=== PATIENT | female | born 1975 | race Caucasian/White ===

== ENCOUNTER 2019-10-19 11:03 | Emergency (ER) | payer OTHER, SELFPAY ==
--- NOTE | ~2019-10-19 | XR_ITS ---
EXAMINATION: XR foot LT min 3V EXAM DATE: 10/19/2019 11:34 INDICATION: Initial encounter following injury, with pain of the left foot. Injury 2 weeks ago. TECHNIQUE: Left foot dorsoplantar, lateral and oblique projections obtained and reviewed. There is n o prior study for comparison. FINDINGS: Left metatarsal bones unremarkable. Small posterior calcaneal spur. No periosteal reacti on to suggest subacute fracture. There are no acute fractures or dislocations identified. There i s no subcutaneous gas. The soft tissue is unremarkable. There are no radiopaque foreign bodies. IMPRESSION: No acute osseous findings. Reviewed, dictated and finalized at location B. IMPRESSION: No acute osseous findings.
[2019-10-19 11:16] VITALS: BP 140/94; PULSE 102; RESP 20; TEMP 36.9; O2SAT 99
--- NOTE | 2019-10-19 11:26 | ED.LOWEXIN ---
HPI - Extremity Injury (Lower) General Chief Complaint: Extremity Injury, Lower Stated Complaint: left foot injury Time Seen by Provider: 10/19/19 11:20 Source: patient Mode of arrival: ambulatory Limitations: no limitations History of Present Illness HPI Narrative: Dana Smith is a 44 yo female with a PMH of HTN, arthritis, who comes to express care with a wound that is 2 weeks old. She kicked firewood with a pair flip-flops on and sustained an injury to the dorsum of her forefoot at the base of toes 3 and 4 that has been swollen and painful, it has gotten more indurated with time. Related Data Home Medications Medication Instructions Recorded Confirmed amlodipine 5 mg DAILY 04/16/19 10/19/19 lisinopril 40 mg DAILY 04/16/19 10/19/19 meloxicam 15 mg DAILY 10/19/19 10/19/19 Allergies Allergy/AdvReac Type Severity Reaction Status Date / Time tramadol Allergy Unknown HIVES Unverified 10/19/19 11:10 Chocolate Allergy Mild Unknown Uncoded 10/19/19 11:10 Dust Allergy Mild Unknown Uncoded 10/19/19 11:10 Review of Systems Review of Systems: Narrative: CONSTITUTIONAL: Denies fever, chills, sweats. EYES: Denies visual changes, redness, discharge. ENT: Denies rhinorrhea, congestion, sore throat, otalgia. CARDIOVASCULAR: Denies chest pain, palpitations, edema. RESPIRATORY: Denies dyspnea, wheezing, cough GASTROINTESTINAL: Denies abdominal pain, nausea, vomiting, diarrhea. GENITOURINARY: Denies dysuria, hematuria, abnormal discharge SKIN: Denies rash or itching. NEUROLOGIC: Denies numbness, or focal weakness. PSYCHIATRIC: Denies anxiety or depression. Left pain and swelling of forefoot dorsum side PMFSH Family History Family History Other Diabetes mellitus Hypertension Social History Social History (Updated 10/19/19 @ 11:31 by Svitlana Snider CNP) Smoking packs per day: 0.5 Smoking cigarettes per day: 10.0 Smoking status: Current every day smoker Alcohol intake: current Gender identity (if verbalized by the patient): Female Comments At time of signature, I agree with nursing past medical, surgical, social and family history. There is no relevant family history pertinent to the presenting complaint. Exam Narrative: Exam Narrative: GENERAL: This is a well-nourished, well-developed patient, in mild distress. HEAD: normocephalic, atraumatic. EYES: Sclera clear/white. Vision is grossly intact. EARS: External ears normal, . Hearing grossly intact. NOSE: External nose normal without nasal discharge, nares without redness, no rhinorrhea. THROAT: Mucous membranes moist, NECK: Neck supple, CARDIOVASCULAR: Regular rate and rhythm without murmurs, gallops, or rubs. RESPIRATORY: Clear to auscultation. Breath sounds equal bilaterally. No wheezes, rales, or rhonchi. GASTROINTESTINAL: Abdomen soft, SKIN: warm, intact with no suspicious lesions or rash, good texture and turgor. NEURO: awake, alert, and oriented to person, place and time. There were no obvious focal neurologic abnormalities. Steady gait EXTREMITIES: Normal range of motion on right; left foot, indurated and swollen dorsum of the left foot, forefoot area warm to touch, unable to move toes without pain, 2+ pedal pulse BACK: Nontender without deformity Course Course Emergency Course: X-ray left foot- Vital Signs Vital signs: Vital Signs Temperature 98.5 F 10/19/19 11:16 Pulse Rate 102 H 10/19/19 11:16 Respiratory Rate 10/19/19 11:16 Blood Pressure 140/94 H 10/19/19 11:16 Pulse Oximetry 99 10/19/19 11:16 Temperature 98.5 F 10/19/19 11:16 Pulse Rate 102 H 10/19/19 11:16 Respiratory Rate 10/19/19 11:16 Blood Pressure 140/94 H 10/19/19 11:16 Pulse Oximetry 99 10/19/19 11:16 MDM - Extremity Injury (Lower) Differential Diagnosis Differential diagnosis: Likely ankle sprain and strain, puncture wound of foot, fracture of toe and other Discharge
== END 2019-10-19 12:20 | disposition home or self-care (01) ==
PROVIDERS: Emergency Provider Nurse Practitioner
DX: S99.922A Unspecified injury of left foot, initial encounter (principal); I10 Essential (primary) hypertension; M19.90 Unspecified osteoarthritis, unspecified site; E11.9 Type 2 diabetes mellitus without complications; F17.210 Nicotine dependence, cigarettes, uncomplicated; W22.8XXA Striking against or struck by other objects, initial encounter
CPT/HCPCS: 73630; 99213; G0463

== ENCOUNTER 2023-03-22 19:50 | Emergency (ER) | payer OTHER, SELFPAY ==
--- NOTE | 2023-03-22 19:51 | ED.GENADULT ---
HPI - General Adult General Chief complaint: Recheck/Abnormal Lab/Rx Stated complaint: needs prescriptions filled Time Seen by Provider: 03/22/23 20:00 Source: patient Mode of arrival: ambulatory Limitations: no limitations History of Present Illness HPI narrative: 47-year-old female presents concern for medication refill. She reports she was unable to get an appointment with her local doctor until margin she does not want to drive an hour to see her current physician to refill her medications. She denies any symptoms. MD complaint: Medication refill Related Data Home Medications Medication Instructions Recorded Confirmed lisinopril 20 tablet 03/22/23 mg-hydrochlorothiazide 12.5 mg tablet meloxicam 15 mg tablet mg 03/22/23 Allergies Allergy/AdvReac Type Severity Reaction Status Date / Time tramadol Allergy Unknown HIVES Verified 03/22/23 19:56 Chocolate Allergy Mild Unknown Uncoded 03/22/23 19:56 Dust Allergy Mild Unknown Uncoded 03/22/23 19:56 Review of Systems Review of Systems: Per HPI All systems reviewed & are unremarkable except as noted in HPI and below PMFSH Family History Family History Other Diabetes mellitus Hypertension Social History Social History (Updated 10/19/19 @ 11:31 by Svitlana Snider, [employer]) Smoking packs per day: 0.5 Smoking cigarettes per day: 10.0 Smoking status: Current every day smoker Alcohol intake: current Gender identity (if verbalized by the patient): Female Comments At time of signature, agree with nursing past medical, surgical, social and family history. There is no relevant family history pertinent to the presenting complaint Exam Narrative: GENERAL: Well-appearing, well-nourished, and in no acute distress. HEAD: Normocephalic EYES: PERRLA ENT: Nares clear. Mucous membranes moist NECK: Supple. CHEST: No respiratory distress. Speaks in full sentences. HEART: Regular rate and rhythm. SKIN: Warm, dry, no visible rash. NEURO: Alert and oriented x3. PSYCH: Normal mood and affect Course Course Emergency Course: I advised patient that I will fill medication for blood pressure but I will not fill her other medications because they are not life-threatening. Patient has a physician that she can see, she reported she does not want to drive to see them. I report advised patient to see her primary physician for her other refills Anticipatory guidance given. Portions of this record may have been created with voice recognition software Level of Care: Express Care Visit Vital Signs Vital signs: Reviewed. Medical Decision Making MDM Narrative Medical decision making narrative: Exam findings show no acute concerns or changes; patient is non-toxic appearing and is in no distress. Patient is appropriate for outpatient treatment and follow-up. Critical Care Time Critical Care Time Critical Care Time: No Discharge Plan Discharge Clinical Impression: Encounter for medication refill Patient Disposition: Home, Self-Care Condition: Stable Instructions: Hypertension (ED) Additional Instructions: 1) Please follow-up with your primary care doctor in the next 1-2 days. 2) If you have any urgent concerns please go to the ER. You can call [phone] for help finding a primary care provider in your area that accepts your insurance. Prescriptions: New lisinopril-hydrochlorothiazide 20-12.5 mg tablet 1 tablet PO DAILY Qty: 30 0RF No Action lisinopril-hydrochlorothiazide 20-12.5 mg tablet meloxicam 15 mg tablet Follow-up/Referrals: Rolan,CORINNE Bhatti [Primary Care Provider] - Time of Disposition: 20:07
[2023-03-22 20:00] VITALS: BP 189/109; PULSE 94; RESP 16; TEMP 35.9; O2SAT 100
== END 2023-03-22 20:10 | disposition home or self-care (01) ==
PROVIDERS: Emergency Provider Nurse Practitioner; PCP Nurse Practitioner Family
DX: Z76.0 Encounter for issue of repeat prescription (principal); I10 Essential (primary) hypertension; M19.90 Unspecified osteoarthritis, unspecified site; F17.210 Nicotine dependence, cigarettes, uncomplicated
CPT/HCPCS: 99213; G0463